=== PATIENT | female | born 1995 | race American Indian/Alaskan Native ===

== ENCOUNTER 2017-06-17 12:32 | Emergency (ER) | payer OTHER, MEDICAID ==
[2017-06-17 14:30] VITALS: BP 116/70
[2017-06-17] MEDS ORDERED: TYLENOL PO ONE (14:49)
[2017-06-17] MEDS ORDERED: FLEXERIL PO ONE (14:49)
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
[2017-06-17 17:12] LABS: Bacteria,Urine 2+ /HPF (Negative); Bilirubin,Urine NEG (Negative); Blood,Urine NEG (Negative); Color,Urine Yellow (Yellow); Mucus,Urine 1+ /HPF; Nitrite,Urine NEG (Negative); Protein,Urine <15 mg/dL mg/dL (Negative)
== END 2017-06-17 17:39 | disposition home or self-care (01) ==
LOC: ED 12:32
DX: O23.42 Unspecified infection of urinary tract in pregnancy, second trimester (principal); O26.892 Other specified pregnancy related conditions, second trimester; S39.012A Strain of muscle, fascia and tendon of lower back, initial encounter; Z3A.21 21 weeks gestation of pregnancy; V89.2XXA Person injured in unspecified motor-vehicle accident, traffic, initial encounter; Y93.89 Activity, other specified; Y92.89 Other specified places as the place of occurrence of the external cause; Y99.8 Other external cause status
CPT/HCPCS: 81001; 99284

== ENCOUNTER 2017-10-14 19:41 | Outpatient (CLI) | payer BC, MEDICAID ==
[2017-10-14 19:57] VITALS: BP 124/79
== END 2017-10-14 21:04 | disposition home or self-care (01) ==
LOC: TRG 19:41 → LD 19:50 → TRG 21:04
PROVIDERS: ATTEND Obstetrics & Gynecology
DX: O62.9 Abnormality of forces of labor, unspecified (principal); Z3A.38 38 weeks gestation of pregnancy
CPT/HCPCS: 59025

== ENCOUNTER 2017-10-21 00:53 | Outpatient (CLI) | payer BC, MEDICAID ==
[2017-10-21 01:12] VITALS: BP 115/68
[2017-10-21] MEDS ORDERED: VISTARIL PO ONE (01:41)
== END 2017-10-21 02:37 | disposition home or self-care (01) ==
LOC: TRG 00:53
PROVIDERS: ATTEND Obstetrics & Gynecology
DX: O62.9 Abnormality of forces of labor, unspecified (principal); Z3A.38 38 weeks gestation of pregnancy
CPT/HCPCS: 59025; Q0177

== ENCOUNTER 2017-10-23 22:24 | Outpatient (CLI) | payer BC, MEDICAID ==
[2017-10-23 22:55] VITALS: BP 126/78
--- NOTE | 2017-10-24 01:20 | Ultrasound Report ---
FINAL REPORT EXAM: US OB LIMITED HISTORY: CRISS only COMPARISON: None available. TECHNIQUE: Several real-time grayscale and color Doppler images were obtained. Limited FINDINGS: Exam performed for evaluation of CRISS. CRISS 8.8 centimeters. This is within normal limits. presentation is cephalic. heart rate 130 beats per minute. Placenta location anterior. No placenta previa demonstrated. IMPRESSION: CRISS is lower limits of normal measuring 8.8 centimeters.
[2017-10-24] MEDS ORDERED: VISTARIL PO ONE (04:15)
== END 2017-10-24 04:20 | disposition home or self-care (01) ==
LOC: TRG 22:24
PROVIDERS: ATTEND Obstetrics & Gynecology
DX: O47.1 False labor at or after 37 completed weeks of gestation (principal); Z3A.39 39 weeks gestation of pregnancy
CPT/HCPCS: 76815; Q0177

== ENCOUNTER 2017-10-24 09:35 | Inpatient (IN) | payer BC, MEDICAID ==
[2017-10-24] MEDS ORDERED: STADOL IV PRN (10:11)
[2017-10-24] MEDS ORDERED: SUBLIMAZE IV PRN (10:11)
[2017-10-24] MEDS ORDERED: MINERAL OIL PO PRN (10:11)
[2017-10-24] MEDS ORDERED: ePHEDrine SULFATE IV PRN (10:11)
--- NOTE | 2017-10-24 10:11 | History and Physical Report ---
History of Present Illness Date of examination: 10/24/17 Chief complaint: My water broke last night, having contractions History of present illness: 22 Y/O , presents to labor delivery with C/O ROM last night, clear fluid. C /O contractions every 10 min. GBS +. care at [facility] since Past History Past Medical History: asthma Past Surgical History: no surgical history Family/Genetic History: none Social history: no significant social history - Obstetrical History Expected Date of Delivery: 10/26/17 Actual Gestation: 39 Week(s) 5 Day(s) : 2 Para: 1 Hx # Term Pregnancies: 1 Number of Living Children: 1 Medications and Allergies Allergies Allergy/AdvReac Type Severity Reaction Status Date / Time No Known Allergies Allergy Unverified 04/13/14 21:28 Home Medications Medication Instructions Recorded Confirmed Last Taken Type ALBUTEROL NEB's [Proventil 0.083% 2.5 mg IH Q6H PRN #25 neb 10/04/14 10/24/17 Rx NEBS] Loratadine [Claritin] 10 mg PO DAILY #30 tablet 10/04/14 10/24/17 10/22/17 21: 00 Rx 1 Review of Systems All systems: negative - Vital Signs Vital signs: Vital Signs Pulse BP Pulse Ox 94 H 112/63 97 10/24/17 10:08 10/24/17 10:08 10/24/17 10:08 Temp Pulse Resp BP Pulse Ox 89 112/63 96 10/24/17 10:13 10/24/17 10:08 10/24/17 10:13 - Physical Exam Breasts: Positive: deferred Cardiovascular: Regular rate Lungs: Positive: Clear to auscultation Abdomen: Positive: soft Vulva: both: normal Vagina: Positive: normal moisture Uterus: Positive: enlarged Adnexa: both: normal Anus/Rectum: Positive: normal perianal skin Deep Tendon Reflex Grade: Normal +2 - Obstetrical FHR: category 1 Uterine Contraction Monitor Mode: External Cervical Dilatation: 6 Cervical Effacement Percentage: 80 station: -1 Uterine Contraction Pattern: Irregular Uterine Contraction Intensity: Moderate Results Result Diagrams: 10/24/17 10:30 All other labs normal. Assessment and Plan A: SROM, clear at 39+ weeks, GBS+ P: Expect
[2017-10-24 10:48] LABS: Hematocrit 36.1 % (30.3-42.9); Hemoglobin 12.7 gm/dl (10.1-14.3); Mean Corpuscular HGB Conc 35 % (30-34); Mean Corpuscular Hemoglobin 31 pg (28-32); Mean Corpuscular Volume 89 fl (79-97); Platelet Count 216 K/mm3 (140-440); Red Blood Count 4.07 M/mm3 (3.65-5.03); Red Cell Distribution Width 13.5 % (13.2-15.2)
[2017-10-24] MEDS ORDERED: PITOCin/NS 30 UNIT/500ML 30 UNITS/500 ML BAG IV SCH (11:00)
[2017-10-24] MEDS ORDERED: POLYCILLIN/NS 2 GM/100 ML 2 GM/100 ML BAG IV ONE (11:00)
[2017-10-24] MEDS ORDERED: PITOCin/NS 20 UNIT/1000ML DRIP 20 UNITS/1,000 ML BAG IV SCH (11:00)
[2017-10-24] MEDS ORDERED: LACTATED RINGERS 1,000 ML IV SCH (11:00)
[2017-10-24] MEDS ORDERED: BRETHINE IVP PRN (11:00)
[2017-10-24] MEDS ORDERED: XYLOCAINE 2% INFILTRATI ONE (11:00)
[2017-10-24] MEDS ORDERED: BRETHINE SUB-Q PRN (11:00)
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
[2017-10-24] MEDS ORDERED: TUCKS PAD TP PRN (13:01)
[2017-10-24] MEDS ORDERED: MILK OF MAGNESIA PO PRN (13:01)
[2017-10-24] MEDS ORDERED: DULCOLAX PR PRN (13:01)
[2017-10-24] MEDS ORDERED: BENADRYL PO PRN (13:01)
[2017-10-24] MEDS ORDERED: LANSINOH TP PRN (13:01)
[2017-10-24] MEDS ORDERED: TYLENOL PO PRN (13:01)
[2017-10-24] MEDS ORDERED: SODIUM CHLORIDE FLUSH SYRINGE 10 ML IV NR (14:00)
[2017-10-24] MEDS ORDERED: AMPICILLIN/NS 1 GM/50 ML 1 GM/50 ML BAG IV SCH (15:00)
[2017-10-24] MEDS: MOTRIN PO SCH ×2 (16:13→23:28)
[2017-10-24] MEDS: NORCO 5/325 PO PRN (16:13)
[2017-10-25 01:14] LABS: Hematocrit 36.2 % (30.3-42.9)
[2017-10-25] MEDS: MOTRIN PO SCH ×3 (03:47→23:59)
[2017-10-25] MEDS: NORCO 5/325 PO PRN ×4 (03:47→22:45)
--- NOTE | 2017-10-25 09:55 | Progress Note ---
Assessment and Plan - Patient Problems (1) Status post normal vaginal delivery Current Visit: Yes Status: Acute Plan to address problem: PPD 1 - stable Continue routine PP orders Discharge to home 10/26/17 Follow-up at [facility] in 6 weeks for PP exam/IUD insertion Subjective - Subjective Date of service: 10/25/17 Principal diagnosis: S/P Normal Spontaneous Vaginal Delivery Patient reports: appetite normal, voiding normally, pain well controlled, flatus , ambulating normally : doing well, nursing well Objective - Vital Signs Latest vital signs: Vital Signs Temp Pulse Resp BP BP Pulse Ox 10/25/17 00:52 98.3 F 91 H 20 109/67 98 10/24/17 20:39 97.5 F L 83 20 112/64 98 10/24/17 16:20 97.3 F L 93 H 16 101/60 10/24/17 14:10 97.6 F 73 14 114/65 96 10/24/17 13:31 78 125/75 10/24/17 13:16 98.1 F 80 124/71 10/24/17 13:01 86 127/74 10/24/17 12:49 93 H 124/75 10/24/17 10:30 86 20 96 10/24/17 10:18 86 96 10/24/17 10:13 89 96 10/24/17 10:08 94 H 112/63 97 Intake and Output 10/24/17 10/25/17 10/25/17 23:59 07:59 15:59 Intake Total 1080 Output Total 400 200 Balance 680 -200 Intake: Oral 720 Intake, Free Water 360 Output: Urine 400 200 Void 400 200 Other: Total, Intake Amount 360 Total, Output Amount 400 200 # Voids Void 1 - Exam Cardiovascular: Present: Regular rate, Normal S1, Normal S2, No murmurs Lungs: Present: Clear to auscultation, Normal air movement Abdomen: Present: normal appearance, soft Vulva: both: normal Uterus: Present: normal, firm, fundal height at umbilicus Extremities: Present: normal Deep Tendon Reflex Grade: Normal +2 - Labs Labs: Abnormal lab results 10/24/17 Range/Units 10:30 MCHC 35 H (30-34) %
--- NOTE | 2017-10-25 10:00 | Discharge Summary ---
Providers - Providers Date of Admission: 10/24/17 09:36 Date of discharge: 10/26/17 Attending physician: JOHN PRICE MD Primary care physician: JOHN PRICE MD Hospitalization Reason for admission: active labor, rupture of membranes (SROM), IUP at term Delivery: Episiotomy: none Laceration: none Other procedures: none complications: none Discharge diagnosis: IUP at term delivered [place] baby: male Hospital course: Uncomplicated Condition at discharge: Stable Disposition: DC-01 TO HOME OR SELFCARE - Discharge Diagnoses (1) Status post normal vaginal delivery Status: Acute Plan - Provider Discharge Summary Activity: routine, no sex for 6 weeks, no heavy lifting 4 weeks, no strenuous exercise Diet: routine Instructions: routine Additional instructions: [] Smoking cessation referral if applicable(refer to patient education folder for contact #) [] Refer to [facility] Booklet Call your doctor immediately for: * Fever > 100.5 * Heavy vaginal bleeding ( >1 pad per hour) * Severe persistent headache * Shortness of breath * Reddened, hot, painful area to leg or breast * Drainage or odor from incision. * Keep incision clean and dry at all times and follow doctor's instructions regarding bathing/showering - Follow up plan Follow up: JOHN PRICE MD [Primary Care Provider] - 6 Weeks (Call [facility] to schedule an appointment in 6 weeks for exam and IUD insertion )
[2017-10-26] MEDS: MOTRIN PO SCH ×2 (05:21→12:17)
[2017-10-26] MEDS: NORCO 5/325 PO PRN (08:21)
[2017-10-26 12:51] VITALS: BP 127/82
== END 2017-10-26 14:15 | disposition home or self-care (01) | DRG 775 ==
LOC: TRG 09:35 → LD 09:36 → TRG 09:36 → OB 14:38
PROVIDERS: ADMIT Obstetrics & Gynecology; ATTEND Obstetrics & Gynecology
PROC: 10E0XZZ Delivery of Products of Conception, External Approach (ICD-10-PCS; principal; 2017-10-24)
DX: O99.824 Streptococcus B carrier state complicating childbirth (principal); Z3A.39 39 weeks gestation of pregnancy; Z37.0 Single live birth; Z79.899 Other long term (current) drug therapy
CPT/HCPCS: 36415; 85014; 85018; 85027; 86850; 86900; 86901; 99211; A6250; G0463; J0290; J0595; J2590; J7120

== ENCOUNTER 2019-08-03 17:09 | Emergency (ER) | payer BC, MEDICARE | END 2019-08-03 21:08 | LOC: ED 17:09 | DX: M25.569 Pain in unspecified knee (principal); Z53.21 Procedure and treatment not carried out due to patient leaving prior to being seen by health care provider ==